=== PATIENT | male | born 1950 | race Caucasian/White ===

== ENCOUNTER 2017-08-13 07:36 | Day surgery (SDC) | payer BC, OTHER ==
[2017-08-13] MEDS ORDERED: D5 LR 1000 ML 1,000 ML IV ONE (07:42)
[2017-08-13] MEDS ORDERED: DIPRIVAN VIAL 20 ML ONE ×2 (09:22→09:42)
[2017-08-13 10:08] VITALS: BP 130/65
== END 2017-08-13 10:10 | disposition home or self-care (01) ==
LOC: SURG1 07:36
PROVIDERS: ATTEND Internal Medicine Gastroenterology
PROC: 0DBN8ZX Excision of Sigmoid Colon, Via Natural or Artificial Opening Endoscopic, Diagnostic (ICD-10-PCS; principal; 2017-08-13 10:00)
PROC: 0DJD8ZZ Inspection of Lower Intestinal Tract, Via Natural or Artificial Opening Endoscopic (ICD-10-PCS; principal; 2017-08-13 10:00)
PROC: 0DBP8ZX Excision of Rectum, Via Natural or Artificial Opening Endoscopic, Diagnostic (ICD-10-PCS; principal; 2017-08-13 10:00)
DX: Z12.11 Encounter for screening for malignant neoplasm of colon (principal); K63.5 Polyp of colon; K57.30 Diverticulosis of large intestine without perforation or abscess without bleeding; K64.0 First degree hemorrhoids; Z86.010 Personal history of colon polyps
CPT/HCPCS: A4217; J3490; J7120

== ENCOUNTER 2018-01-07 16:06 | Inpatient (IN) | payer OTHER ==
[2018-01-07 17:15] LABS: CKMB % 1.5 % (<4); CREATINE KINASE 203 Units/L (39-308); CREATINE KINASE MB 3.1 ng/mL (0-4.0); MAGNESIUM 1.8 mg/dL (1.7-2.9); TROPONIN I < 0.02 ng/mL (0-1.5)
[2018-01-07] MEDS: ASPIRIN PO SCH (17:15)
[2018-01-07] MEDS ORDERED: APRESOLINE TAB 10 MG ONE (17:17)
[2018-01-07] MEDS ORDERED: APRESOLINE INJ 20 MG VIAL IVP PRN ×2 (17:18→20:02)
[2018-01-07] MEDS ORDERED: APRESOLINE INJ 20 MG VIAL ONE (17:23)
[2018-01-07] MEDS: NS 1000 ML 1,000 ML IV SCH (17:25)
[2018-01-07 18:33] VITALS: BMI 39.9
[2018-01-07] MEDS: CRESTOR TAB 10 MG PO SCH ×2 (19:39→20:23)
[2018-01-07] MEDS: PLAVIX PO SCH (19:58)
[2018-01-07] MEDS ORDERED: CATAPRES TAB 0.1 MG PO PRN (19:59)
[2018-01-07] MEDS ORDERED: NORVASC TAB 10 MG PO ONE (20:00)
--- NOTE | 2018-01-07 20:01 | MRI ---
MRI Brain without contrast HISTORY: Left-sided weakness Comparison: CT performed on same day Technique: Multiplanar multi-sequence MRI of the brain was obtained utilizing standard departmental p rotocol. Sagittal and axial T1 weighted images were obtained. Axial T2 and flair weighted images we re performed as well. Axial diffusion weighted and ADC trace mapping was performed. Findings: There is a focus of restricted diffusion within the right cerebral peduncle with faint FLAIR signal h yperintensity noted. There is no other areas of restricted diffusion within the brain. The mild bilateral periventricular deep white matter FLAIR and T2 signal hyperintensity is most consi stent with sequela of chronic microvascular ischemic disease. There is mucosal thickening of the righ t frontal and ethmoids opacification the left posterior ethmoid sinus as well. There is mild mucosal thickening in the bilateral maxillary sinuses. The midline structures appear unremarkable. The evaluation of the brain parenchyma demonstrates no a bnormal signal characteristics to suggest intraparenchymal mass or hemorrhage. No extra-axial fluid collections are observed. The ventricular system appears symmetric and nondilated. The CP angle is normal in its appearance without brainstem mass or evidence for acoustic neuroma. The flow voids on both T1 and T2 weighted imaging appear unremarkable.The extracranial structures are unremarkable. IMPRESSION: 1. Acute infarct within the right cerebral peduncle. 2. Mild bilateral periventricular deep white matter FLAIR and T2 signal hyperintensity consistent wit h chronic microvascular ischemic disease. 3. Mild bilateral maxillary, ethmoid and right frontal sinus mucosal disease. Reported By:
--- NOTE | 2018-01-07 20:21 | RAD ---
Chest PA and lateral Indication: Left upper extremity weakness. Dizziness. Possible stroke. Comparison: 03/16/2012 radiograph Findings: Heart size is prominent. Monitoring leads obscure minimal detail. Clips project over the ri ght neck/supraclavicular region. There is no pneumothorax, effusion or consolidation. Impression: Cardiomegaly without severe edema or other acute abnormality. Reported By:
[2018-01-07] MEDS: HumuLIN R SUBCUT PRN (20:50)
[2018-01-07] MEDS: SNACK - Diabetic Appropriate PO SCH (20:53)
[2018-01-07 21:14] LABS: BASOPHILS # (AUTO) 0.2 X10^3/uL (0.0-0.1); BASOPHILS % (AUTO) 1.9 % (0.2-1.0); EOSINOPHILS # (AUTO) 0.7 x10^3/uL (0.0-0.2); EOSINOPHILS % (AUTO) 7.2 % (0.9-2.9); HEMATOCRIT 43.5 % (42.0-54.0); HEMOGLOBIN 15.4 g/dL (13.5-18.0); LYMPHOCYTES # (AUTO) 3.7 X10^3/uL (1.3-2.9); LYMPHOCYTES % (AUTO) 37.6 % (21.0-51.0); MEAN CORPUSCULAR HEMOGLOBIN 31.8 pg (27.0-34.0); MEAN CORPUSCULAR HGB CONC 35.3 g/dL (33.0-35.0); MEAN CORPUSCULAR VOLUME 90.2 fL (80.0-100.0); MEAN PLATELET VOLUME 9.2 fL (7.4-11.0); MONOCYTES # (AUTO) 0.6 x10^3/uL (0.3-0.8); MONOCYTES % (AUTO) 5.6 % (0.0-13.0); NEUTROPHILS # (AUTO) 4.7 x10^3/uL (2.2-4.8); NEUTROPHILS % (AUTO) 47.7 % (42.0-75.0); PLATELET COUNT 253 X10^3/uL (150.0-450.0); RED BLOOD COUNT 4.83 X10^6/uL (4.7-6.0); RED CELL DISTRIBUTION WIDTH 12.6 % (11.6-16.5); WHITE BLOOD COUNT 9.9 X10^3/uL (3.6-10.0)
[2018-01-07 21:33] LABS: ALANINE AMINOTRANSFERASE 41 Units/L (12-78); ALBUMIN 3.8 g/dL (3.4-5.0); ALKALINE PHOSPHATASE 74 Units/L (46-116); ASPARTATE AMINO TRANSFERASE 28 Units/L (15-37); BLOOD UREA NITROGEN 10 mg/dL (7-18); CALCIUM 8.1 mg/dL (8.5-10.1); CARBON DIOXIDE 22.9 mmol/L (21-32); CHLORIDE 101 mmol/L (98-107); COR NA(FOR HYPERGLY) 139 mmol/L (136-145); CREATININE 0.92 mg/dL (0.70-1.30); SODIUM 136 mmol/L (136-145); TOTAL PROTEIN 7.7 g/dL (6.4-8.2); TSH (3RD GENERATION) 2.417 uIU/mL (0.358-3.74); eGFR BLACK RACES > 60 (>60); eGFR NON BLACK RACES > 60 (>60)
[2018-01-07 23:05] LABS: CKMB % 1.3 % (<4); CREATINE KINASE 196 Units/L (39-308); CREATINE KINASE MB 2.5 ng/mL (0-4.0); TROPONIN I < 0.02 ng/mL (0-1.5)
[2018-01-08 00:18] LABS: BILIRUBIN,URINE NEGATIVE (NEGATIVE); BLOOD/HEMOGLOBIN,URINE NEGATIVE (NEGATIVE); GLUCOSE, URINE 4+ (NEGATIVE); KETONES,URINE NEGATIVE (NEGATIVE); LEUKOCYTE ESTERASE ,URINE NEGATIVE (NEGATIVE); NITRITES,URINE NEGATIVE (NEGATIVE); PROTEIN,URINE 2+ (NEGATIVE); UROBILINOGEN,URINE NORMAL (NORMAL)
[2018-01-08 00:28] LABS: APPEARANCE,URINE CLEAR (CLEAR); BACTERIA,URINE NEGATIVE /HPF (NEGATIVE); COLOR,URINE YELLOW (YELLOW); RBC,URINE 0-2 /HPF (NONE SEEN); SQUAMOUS EPITHELIAL CELL,UR RARE /HPF (NEGATIVE)
[2018-01-08 04:52] LABS: ALANINE AMINOTRANSFERASE 37 Units/L (12-78); ALBUMIN 3.5 g/dL (3.4-5.0); ALKALINE PHOSPHATASE 70 Units/L (46-116); ASPARTATE AMINO TRANSFERASE 19 Units/L (15-37); BLOOD UREA NITROGEN 12 mg/dL (7-18); CALCIUM 7.8 mg/dL (8.5-10.1); CHLORIDE 100 mmol/L (98-107); CHOL/HDL RATIO 6.6 (0.0-5.0); CHOLESTEROL 212 mg/dL (0-200); CKMB % 1.2 % (<4); COR NA(FOR HYPERGLY) 138 mmol/L (136-145); CREATINE KINASE 184 Units/L (39-308); CREATINE KINASE MB 2.2 ng/mL (0-4.0); CREATININE 0.94 mg/dL (0.70-1.30); HDL CHOLESTEROL 32 mg/dL (40-60); SODIUM 133 mmol/L (136-145); TOTAL PROTEIN 7.2 g/dL (6.4-8.2); TRIGLYCERIDES 312 mg/dL (0-150); TROPONIN I < 0.02 ng/mL (0-1.5); eGFR BLACK RACES > 60 (>60); eGFR NON BLACK RACES > 60 (>60)
[2018-01-08 05:25] LABS: BASOPHILS # (AUTO) 0.1 X10^3/uL (0.0-0.1); BASOPHILS % (AUTO) 0.9 % (0.2-1.0); EOSINOPHILS # (AUTO) 0.8 x10^3/uL (0.0-0.2); EOSINOPHILS % (AUTO) 8.5 % (0.9-2.9); HEMATOCRIT 42.7 % (42.0-54.0); LYMPHOCYTES # (AUTO) 3.1 X10^3/uL (1.3-2.9); LYMPHOCYTES % (AUTO) 31.6 % (21.0-51.0); MEAN CORPUSCULAR HEMOGLOBIN 31.7 pg (27.0-34.0); MEAN CORPUSCULAR VOLUME 90.6 fL (80.0-100.0); MEAN PLATELET VOLUME 8.7 fL (7.4-11.0); MONOCYTES # (AUTO) 0.7 x10^3/uL (0.3-0.8); NEUTROPHILS # (AUTO) 5.1 x10^3/uL (2.2-4.8); PLATELET COUNT 272 X10^3/uL (150.0-450.0); RED BLOOD COUNT 4.72 X10^6/uL (4.7-6.0); RED CELL DISTRIBUTION WIDTH 12.7 % (11.6-16.5); WHITE BLOOD COUNT 9.9 X10^3/uL (3.6-10.0)
[2018-01-08] MEDS ORDERED: GLUCOPHAGE ONE (09:38)
[2018-01-08] MEDS: ROCEPHIN VIAL 1 GM 1 GM in NS 100 ML IV + SPIKE MINIBAG* 100 ML IV SCH ×2 (09:44→09:52)
[2018-01-08] MEDS: GLUCOPHAGE PO SCH (09:45)
[2018-01-08] MEDS: NORVASC TAB 10 MG PO SCH (09:45)
[2018-01-08] MEDS: ASPIRIN PO SCH (09:45)
[2018-01-08] MEDS: PLAVIX PO SCH (09:45)
[2018-01-08] MEDS: FENOFIBRATE 120 MG PO SCH (09:51)
[2018-01-08] MEDS: HumuLIN R SUBCUT PRN ×3 (12:14→21:14)
[2018-01-08] MEDS ORDERED: NS 100 ML IV 100 ML IV ONE (12:35)
--- NOTE | 2018-01-08 13:36 | DR.H&P ---
H&P - History & Physical for Day of: H&P Date: 01/07/18 - Chief Complaint Chief Complaint: LEFT SIDE WEAKNESS - Allergies Allergies/Adverse Reactions: Allergies Allergy/AdvReac Type Severity Reaction Status Date / Time No Known Drug Allergies Allergy Verified 01/07/18 09:02 - History of Present Illness History of Present Illness: 67WM ER ADMISSION AFTER PRESENTING WITH CO NEW ONSET LEFT SIDE WEAKNESS. PT STATE HE WOKE UP DURING THE NIGHT WITH WEAKNESS. PT THOUHT HE WAS "JUST SLEEPY". PT AWOKE AT 6:30 AM FOR WORK AND CONTINUES WITH LEFT SIDE WEAKNESS, THOUGHT IT WAS WORSE. PT WENT TO WORK THEN LEFT TO BE SEEN BY PCP AND SENT TO ER. PT HAD CT SCAN IN ER WITHOUT ACUTE CHANGES. PT DC HOME THEN LATER RETURNED WITH WORSENED LEFT SIDE WEAKNESS AND WAS ADMITTED OR STROKE WORK UP. PT HAS PMH OF DM, HYPERLIPIDEMIA, AMIRAH, HTN, MO. DENIES ANY CARDIAC HISTORY,HAD CARDIAC CATH PER DR COLON OVER 5 YEARS AGO IN [place] WITHOUT INTERVENTION. - Past Medical History Past Medical History: Dyslipidemia, Hypertension, Hypothyroidism - Past Surgical History Surgical History: Abdominal Surgery - Family History Family Medical History: Coronary Artery Disease, Hypertension - Social History Does patient currently use any type of tobacco product: No Have you used tobacco products in the last 12 months: No Type of Tobacco Use: None Does any household member use tobacco: No Alcohol Use: None Drug Use: None - Medications Home Medications: Cholecalciferol (Vitamin D3) [Vitamin D3] 1 tab PO PRN PRN 01/07/18 [History Confirmed 01/07/18] Cyanocobalamin (Vitamin B-12) [Cyanocobalamin Injection] 1 mcg IM .MONTHLY 01/07 [History Confirmed 01/07/18] Ibuprofen [Ibu] 1 tab PO TID PRN 01/07/18 [History Confirmed 01/07/18] Levothyroxine Sodium [Levothyroxine Sodium] 1 tab PO DAILY 01/07/18 [History Confirmed 01/07/18] Polyethylene Glycol Pwd Ud [MIRALAX POWDER (17 GM DOSE) *] 1 dose PO PRN PRN [History Confirmed 01/07/18] Simvastatin [Simvastatin] 10 mg PO HS 01/07/18 [History Confirmed 01/07/18] - Review of Systems Constitutional: Weakness Eyes: No Symptoms Reported ENT: No Symptoms Reported Respiratory: No Symptoms Reported Cardiovascular: Edema. denies: Chest Pain, Palpitations Gastrointestinal: No Symptoms Reported Genitourinary: No Symptoms Reported Musculoskeletal: Other (LEFT UPPER AND LOWER EXTREMITY MUSCLE WEAKNESS) Skin: No Symptoms Reported Neurological: Weakness, Numbness, Change in Speech - Physical Exam Vital Signs: Temperature 98.2 F Pulse Rate [Left Radial] 58 Respiratory Rate 20 Blood Pressure [Left Arm] 152/68 Blood Pressure [Right Arm] 146/67 Blood Pressure 187/83 O2 Sat by Pulse Oximetry 96 Oriented: Normal Eyes: Normal Ear: Normal Nose: Normal Throat: Normal Respiratory: RLL Diminished, LLL Diminished Cardiovascular: Normal, Edema : Normal Auscultation: Bowel Sounds: Normal Palpation: Normal Tenderness: Normal Skin: Normal Musculoskeletal: Left, Motor Deficit, Sensory Deficit Psychiatric: Anxiety Affect: Anxious Speech Pattern: Slurred (MILD SLURRING OF SPEECH) - Assessment/Plan (1) Acute left-sided weakness Status: Acute Plan: ADMIT, STAT MRI BRAIN W/O. BP AND LIPID CONTROL ASA, PLAVIX, STATIN. SERIAL CE AND EKG'S. CTA CAROTIDS, CXR ON ADMISSION. BLOOD SUGAR CONTROL, PT OT (2) Hypertension Status: Acute (3) Diabetes Status: Acute (4) AMIRAH (obstructive sleep apnea) Status: Acute (5) Hyperlipemia Status: Acute
--- NOTE | 2018-01-08 13:45 | PCM.PROG ---
Progress Note - Progress Note for Day of Date: 01/08/18 - Subjective Subjective: 67WM ADMITTED ON 01/09 WITH ACUTE ONSET LEFT SIDE WEAKNESS TO LEFT UPPER AND LOWER EXTREMITIES, CONTINUES THIS AM. PT HAD MRI WITH ACUTE CVA FINDINGS. PT CURRENTLY NPO FOR CTA CAROTIDS, CONTINUOUS TELEMETRY, BS CONTROL AND BP CONTROL. PT/OT EVALUATION CONTINUE ASA PLAVIS AND STATIN THERAPY - Past Medical Family Social History Past Med/Fam/Surg Hx: No changes since H&P Allergies: Allergies No Known Drug Allergies Allergy (Verified 01/07/18 09:02) - Review of Systems ROS: No change since H&P - Vital Signs and I&O's Vital Signs: Temperature 98.2 F Pulse Rate [Left Radial] 58 Respiratory Rate 20 Blood Pressure [Left Arm] 152/68 Blood Pressure [Right Arm] 146/67 Blood Pressure 187/83 O2 Sat by Pulse Oximetry 96 Intake and Output: Intake & Output 01/06/18 01/07/18 01/08/18 01/09/18 11:59 11:59 11:59 11:59 Intake Total 630 Output Total 1375 Balance -745 - Physical Exam Oriented: Normal Eyes: Normal Ear: Normal Nose: Normal Throat: Normal Respiratory: Diminished Cardiovascular: Normal, Edema : Normal Auscultation: Bowel Sounds: Normal Tenderness: Normal Skin: Normal Musculoskeletal: Left, Motor Deficit (3/5 STRENGTH ON LEFT UPPER AND LOWER EXTREMITY), Sensory Deficit Psychiatric: Anxiety Affect: Anxious Speech Pattern: Slurred (MILD SLURRING OF SPEECH) - Laboratory and Diagnostics Result Diagrams: 01/08/18 04:20 01/08/18 04:20 Labs: Laboratory WBC 9.9 X10^3/uL (3.6-10.0) 01/08/18 04:20 RBC 4.72 X10^6/uL (4.7-6.0) 01/08/18 04:20 Hgb 15.0 g/dL (13.5-18.0) 01/08/18 04:20 Hct 42.7 % (42.0-54.0) 01/08/18 04:20 MCV 90.6 fL (80.0-100.0) 01/08/18 04:20 MCH 31.7 pg (27.0-34.0) 01/08/18 04:20 MCHC 35.0 g/dL (33.0-35.0) 01/08/18 04:20 RDW 12.7 % (11.6-16.5) 01/08/18 04:20 Plt Count 272 X10^3/uL (150.0-450.0) 01/08/18 04:20 MPV 8.7 fL (7.4-11.0) 01/08/18 04:20 Neut % (Auto) 52.0 % (42.0-75.0) 01/08/18 04:20 Lymph % (Auto) 31.6 % (21.0-51.0) 01/08/18 04:20 [place] % (Auto) 7.0 % (0.0-13.0) 01/08/18 04:20 Eos % (Auto) 8.5 % (0.9-2.9) H 01/08/18 04:20 Baso % (Auto) 0.9 % (0.2-1.0) 01/08/18 04:20 Neut # (Auto) 5.1 x10^3/uL (2.2-4.8) H 01/08/18 04:20 Lymph # (Auto) 3.1 X10^3/uL (1.3-2.9) H 01/08/18 04:20 [place] # (Auto) 0.7 x10^3/uL (0.3-0.8) 01/08/18 04:20 Eos # (Auto) 0.8 x10^3/uL (0.0-0.2) H 01/08/18 04:20 Baso # (Auto) 0.1 X10^3/uL (0.0-0.1) 01/08/18 04:20 Absolute Nucleated RBC 0.4 /100WBC 01/08/18 04:20 Sodium 133 mmol/L (136-145) L 01/08/18 04:20 Corrected Sodium 138 mmol/L (136-145) 01/08/18 04:20 Potassium 3.7 mmol/L (3.5-5.1) 01/08/18 04:20 Chloride 100 mmol/L (98-107) 01/08/18 04:20 Carbon Dioxide 25.0 mmol/L (21-32) 01/08/18 04:20 BUN 12 mg/dL (7-18) 01/08/18 04:20 Creatinine 0.94 mg/dL (0.70-1.30) 01/08/18 04:20 Est GFR (MDRD) Af Amer > 60 (>60) 01/08/18 04:20 Est GFR (MDRD) Non-Af > 60 (>60) 01/08/18 04:20 Glucose 300 mg/dL (65-99) H 01/08/18 04:20 POC Glucose (mg/dL) 253 mg/dL (65-99) H 01/08/18 10:52 Calcium 7.8 mg/dL (8.5-10.1) L 01/08/18 04:20 Corrected Calcium TNP 01/08/18 04:20 Magnesium 1.8 mg/dL (1.7-2.9) 01/07/18 16:40 Total Bilirubin 0.50 mg/dL (0.2-1.0) 01/08/18 04:20 AST 19 Units/L (15-37) 01/08/18 04:20 ALT 37 Units/L (12-78) 01/08/18 04:20 Alkaline Phosphatase 70 Units/L (46-116) 01/08/18 04:20 Creatine Kinase 184 Units/L (39-308) 01/08/18 04:20 CK-MB (CK-2) 2.2 ng/mL (0-4.0) 01/08/18 04:20 CK/CKMB % Calc 1.2 % (<4) 01/08/18 04:20 Troponin I < 0.02 ng/mL (0-1.5) 01/08/18 04:20 Total Protein 7.2 g/dL (6.4-8.2) 01/08/18 04:20 Albumin 3.5 g/dL (3.4-5.0) 01/08/18 04:20 Globulin 3.7 g/dL (2.5-4.5) 01/08/18 04:20 Albumin/Globulin Ratio 0.9 Ratio (1.1-2.1) L 01/08/18 04:20 Triglycerides 312 mg/dL (0-150) H 01/08/18 04:20 Cholesterol 212 mg/dL (0-200) H 01/08/18 04:20 LDL Cholesterol, Calc 118 mg/dL (0-100) H 01/08/18 04:20 HDL Cholesterol 32 mg/dL (40-60) L 01/08/18 04:20 Cholesterol/HDL Ratio 6.6 (0.0-5.0) H 01/08/18 04:20 Free T4 0.90 ng/dL (0.76-1.46) 01/07/18 16:40 TSH 3rd Generation 2.417 uIU/mL (0.358-3.74) 01/07/18 16:40 Specimen Type Clean catch urine 01/07/18 23:10 Urine Color Yellow (YELLOW) 01/07/18 23:10 Urine Appearance Clear (CLEAR) 01/07/18 23:10 Urine pH 8.0 (5.0 - 8.0) 01/07/18 23:10 Ur Specific [place] 1.010 (1.000-1.030) 01/07/18 23:10 Urine Protein 2+ (NEGATIVE) 01/07/18 23:10 Urine Glucose (UA) 4+ (NEGATIVE) 01/07/18 23:10 Urine Ketones Negative (NEGATIVE) 01/07/18 23:10 Urine Occult Blood Negative (NEGATIVE) 01/07/18 23:10 Urine Nitrite Negative (NEGATIVE) 01/07/18 23:10 Urine Bilirubin Negative (NEGATIVE) 01/07/18 23:10 Urine Urobilinogen Normal (NORMAL) 01/07/18 23:10 Ur Leukocyte Esterase Negative (NEGATIVE) 01/07/18 23:10 Urine RBC 0-2 /HPF (NONE SEEN) 01/07/18 23:10 Urine WBC 0-2 /HPF (NONE SEEN) 01/07/18 23:10 Ur Squamous Epith Cells Rare /HPF (NEGATIVE) 01/07/18 23:10 Urine Bacteria Negative /HPF (NEGATIVE) 01/07/18 23:10 Ur Culture Indicated? Yes/culture set up 01/07/18 23:10 - Plan (1) Acute cerebral infarction Status: Acute Plan: BP AND LIPID CONTROL ASA, PLAVIX, STATIN. SERIAL CE AND EKG'S ON ADMISSION. CTA CAROTIDS, CXR ON ADMISSION. BLOOD SUGAR CONTROL, PT OT (2) Acute left-sided weakness Status: Acute Plan: STAT MRI BRAIN W/O ON ADMISSION, REVEALED ACUTE INFARCT RIGHT CEREBRAL AREA. BP AND LIPID CONTROL ASA, PLAVIX, STATIN. SERIAL CE AND EKG'S ON ADMISSION. CTA CAROTIDS, CXR ON ADMISSION. BLOOD SUGAR CONTROL, PT OT (3) Hypertension Status: Acute (4) Diabetes Status: Acute (5) AMIRAH (obstructive sleep apnea) Status: Acute (6) Hyperlipemia Status: Acute
--- NOTE | 2018-01-08 14:37 | VAS ---
HISTORY: Recent CVA Study: Carotid sonogram Comparison: None Technique: Multiple grayscale sonographic images were obtained. Color duplex Doppler evaluation was p erformed. Findings: On the right, there is mild plaque at the bifurcation.. Peak systolic velocity in the internal caroti d is 138 centimeters/second. ICA/CCA ratio 1.69. This suggests a 50% or less stenosis of the internal carotid artery on the right, not hemodynamically significant. On the left there is minimal plaque pr esent. Peak systolic velocity in the internal carotid artery was 85.3 centimeters/second. ICA/CCA rat io was 0.84. No stenosis is present. The left vertebral artery was not identified. IMPRESSION: Findings suggestive of a 50% or less not hemodynamically significant stenosis of the proximal right i nternal carotid artery No stenosis on the left Left vertebral artery not visualized Reported By:
--- NOTE | 2018-01-08 16:07 | CT ---
CT ANGIOGRAM OF THE NECK WITH IV CONTRAST CLINICAL INDICATION: CVA with left-sided weakness TECHNIQUE: Images were obtained through the neck per standard CTA protocol. Multiplanar reformatted, MIP, and volume rendered images were generated from the CT dataset.3D reconstructions were performed. Dose reduction techniques including Automated Exposure Control (AEC) and adjustment of mA and kV wer e utlized. COMPARISON: None. FINDINGS: The petrous, cavernous, and supraclinoid segments of the bilateral internal carotid arteries (ICAs) a re normal. The A1 segments bilaterally are stenotic. The anterior communicating artery is well-visua lized. The posterior communicating arteries are well-visualized. The vertebral arteries and basilar a rtery are normal. The bilateral P1 segments are also somewhat diminutive. There is what appears to be a small developmental venous anomaly along the right cerebral hemisphere on series 6, image 208. No saccular aneurysm, proximal arterial cutoff, intra-arterial clot, or hemodynamically significant i ntracranial arterial stenosis is demonstrated. While the study was optimized for arterial evaluation, the dural venous sinuses demonstrates no evide nce of thrombosis. The imaged aortic arch is normal. The origins of the brachiocephalic, bilateral common carotid, bila teral subclavian, and bilateral vertebral arteries demonstrate no significant stenosis.The bilateral internal and external carotid arteries are patent. Greater than 80% stenosis of the left internal car otid artery just distal to its origin. No hemodynamically significant stenosis of the right internal carotid artery..The cervical vertebral arteries are normal.There is no evidence of arterial dissectio n, occlusion, extravasation of contrast material, arteriovenous fistula, or pseudoaneurysm.The visual ized soft tissues of the neck appear normal.The visualized osseous structures are normal. IMPRESSION: 1. Greater than 80% stenosis of the left internal carotid artery. 2. Stenosis of the bilateral A1 and P1 segments. 3. 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 Reported By:
[2018-01-08] MEDS: NS 1000 ML 1,000 ML IV SCH (16:09)
[2018-01-08] MEDS ORDERED: SYNTHROID 50 mcg TAB PO SCH (16:30)
[2018-01-08] MEDS ORDERED: RESTORIL CAP 15 MG PO PRN (18:30)
[2018-01-08] MEDS: CRESTOR TAB 10 MG PO SCH (21:13)
[2018-01-08] MEDS: SNACK - Diabetic Appropriate PO SCH (22:26)
[2018-01-09] MEDS: HumuLIN R SUBCUT PRN (05:51)
[2018-01-09] MEDS ORDERED: GLUCOPHAGE ONE (08:35)
[2018-01-09] MEDS ORDERED: SYNTHROID 75 mcg TAB PO SCH (09:00)
[2018-01-09] MEDS: GLUCOPHAGE PO SCH (09:20)
[2018-01-09] MEDS: ASPIRIN PO SCH (09:20)
[2018-01-09] MEDS: PLAVIX PO SCH (09:21)
[2018-01-09] MEDS: NORVASC TAB 10 MG PO SCH (09:22)
[2018-01-09] MEDS: ROCEPHIN VIAL 1 GM 1 GM in NS 100 ML IV + SPIKE MINIBAG* 100 ML IV SCH (09:22)
[2018-01-09] MEDS: FENOFIBRATE 120 MG PO SCH (09:22)
[2018-01-09] MEDS: NS 1000 ML 1,000 ML IV SCH (09:25)
[2018-01-09 10:16] VITALS: BP 181/85
[2018-01-09] MEDS ORDERED: NORCO 5/325 MG TAB PO PRN (12:10)
[2018-01-09] MEDS ORDERED: NORCO 5/325 MG TAB ONE (12:29)
== END 2018-01-09 12:49 | disposition short-term general hospital (02) | DRG 66 ==
LOC: MED/SURG 16:06 → OBSVTOIN 16:09
PROVIDERS: ADMIT Internal Medicine; ATTEND Internal Medicine
DX: I63.8 Other cerebral infarction (principal); M62.81 Muscle weakness (generalized); E11.65 Type 2 diabetes mellitus with hyperglycemia; E78.2 Mixed hyperlipidemia; I10 Essential (primary) hypertension; E03.8 Other specified hypothyroidism; I25.10 Atherosclerotic heart disease of native coronary artery without angina pectoris; G47.33 Obstructive sleep apnea (adult) (pediatric); I51.7 Cardiomegaly; R47.81 Slurred speech; R26.89 Other abnormalities of gait and mobility; R53.1 Weakness; R42 Dizziness and giddiness
CPT/HCPCS: 36415; 70450; 70498; 70551; 71046; 80053; 80061; 81001; 82550; 82553; 83735; 84439; 84443; 84484; 85025; 85610; 85730; 87086; 93005; 93010; 93880; 99282; A4222; G0378; J0360; J0696; J1815

== ENCOUNTER → 2018-01-07 | Emergency (ER) | payer OTHER ==
[2018-01-07 09:07] VITALS: BP 187/83; BMI 39.9
--- NOTE | 2018-01-07 09:17 | DR.GENAD ---
HPI - PCP Primary Care Physician: michael clancy - Complaint/Symptoms Chief Complaint Doctors Comments: Patient reports that this early AM midnight got up to go the bathroom, left upper extremity felt weak, with some degree of weakness in left lower extremy. This AM when getting up again felt weakness and left upper and lower extremity. [place] a little dizzy. Chief Complaint:: pt stated he woke up at mid night having weakness in his left arm and left leg. pt stated when he woke up at 630 this morning it had the same felling. - Source History Provided: Patient - Mode of Arrival Mode of Arrival: Ambulatory - Timing Onset of Chief Complaint: 01/06/18 PMH - PMH Past Medical History: Yes Past Medical History: Dyslipidemia, Hypertension, Hypothyroidism Past Surgical History: Yes Surgical History: Abdominal Surgery - Family History History of Family Medical Conditions: No - Social History Does patient currently use any type of tobacco product: No Have you used tobacco products in the last 12 months: No Type of Tobacco Use: None Does any household member use tobacco: No Alcohol Use: None Do you use any recreational Drugs:: No Lives With: Family Lives Where: Home - infectious screening In the last 2 months have you had wt loss of >10#?: NO Have you had fever, night sweats or hemotysis?: No Have you traveled outside the country in the last 6 months?: No Isolation: Standard ROS - Review of Systems Eyes: No Symptoms Reported ENTM: No Symptoms Reported Respiratoy: No Symptoms Reported Cardiovascular: No Symptoms Reported Gastrointestinal/Abdominal: No Symptoms Reported Genitourinary: No Symptoms Reported Neurological: No Symptoms Reported Musculoskeletal: No Symptoms Reported Integumentary: No Symptoms Reported Hematologic/Lymphatic: No Symptoms Reported Endocrine: No Symptoms Reported Psychiatric: No Symptoms Reported All Other Systems: Reviewed and Negative PE - Vital Signs Vitals: Temperature 98.7 F Pulse Rate 66 Respiratory Rate 16 Blood Pressure 187/83 O2 Sat by Pulse Oximetry 98 - General Limitations: No Limitations General Appearance: Alert, In No Apparent Distress - Head Head Exam: Normal Inspection, Atraumatic - Eyes Eye exam: Normal Appearance, PERRL, EOMI - ENT ENT Exam: Normal Exam External Ear Exam: Normal External Inspection TM/Canal Exam: Bilateral Normal Nose Exam: Normal Nose Exam Mouth Exam: Normal Inspection Throat Exam: Normal Inspection - Neck Neck Exam: Normal Inspection, Full ROM - Chest Chest Inspection: Normal Inspection - Respiratory Respiratory Exam: Normal Lung Sounds Bilat Respiratory Exam: Bilateral Clear to Auscultation - Cardiovascular Cardiovascular Exam: Regular Rate, Normal Rhythm - Abdominal Exam Abdominal Exam: Normal Inspection, Normal Bowel Sounds Abdominal Tenderness: negative: RUQ, RLQ, LUQ, LLQ, Epigastrium, Suprapubic, Diffuse, Mild, Moderate, Severe, Other - Extremities Extremities Exam: Normal Inspection, Full ROM - Back Back Exam: Normal Inspection, Full ROM - Neurologic Neurological Exam: Alert, Oriented X3, CN II-XII Intact - Psychiatric Psychiatric Exam: Normal Affect - Skin Skin Exam: Warm, Dry, Intact Course - Reevaluation 1st: Unchanged ROR - XRAY XRAY Interpreted by: Radiologist (Brain CT: No evidence of acute intracranial abnormality. Nonspecific white matter change and volume loss . If there remains strong clinical concern for acute intracranial abnormality, then an MNRI examinaltion should be considered for further evaluation.) - Diagnosis Discharge Problem: History of lefte sided weakness, Negative CVA - Discharge Plan Condition: Stable - Follow ups/Referrals Follow ups/Referrals: DERECK CLANCY [Primary Care Provider] - 3 days - Instructions
--- NOTE | 2018-01-07 11:05 | CT ---
STUDY: CT HEAD WITHOUT CONTRAST HISTORY: Left-sided weakness this morning. COMPARISON: None. TECHNIQUE: Multiple axial images of the head were obtained from the skull base to the vertex without administration of IV contrast. Automated exposure control (AEC) was utilized to adjust the MA and/or kV. Findings: The sulci, cisterns and ventricles are prominent consistent with mild diffuse volume loss. There are scattered foci of low attenuation in the periventricular and subcortical white matter of joelle th hemispheres. This is a nonspecific finding which likely represents microangiopathic change in a pa tient of this age. There is no evidence of acute territorial infarction, hemorrhage, mass, mass effect or midline shift. There are no abnormal extra-axial fluid collections. There is no evidence of acute osseous abnormal ity or significant soft tissue swelling. IMPRESSION: 1. No evidence of acute intracranial abnormality. 2. Nonspecific white matter change and volume loss as described. 3. If there remains strong clinical concern for acute intracranial abnormality, then an MRI examinati on should be considered for further evaluation. Reported By:
== END ==
LOC: ER 09:15
DX: R53.1 Weakness (principal); R42 Dizziness and giddiness
CPT/HCPCS: 70450; 99282

== ENCOUNTER 2023-12-21 13:46 | Observation (INO) ==
[2023-12-21 14:06] VITALS: BMI 34.5
[2023-12-21 14:15] LABS: BASOPHILS # (AUTO) 0.1 X10^3/uL (0.0-0.1); BASOPHILS % (AUTO) 0.7 % (0.2-1.0); EOSINOPHILS # (AUTO) 0.4 x10^3/uL (0.0-0.2); HEMATOCRIT 40.4 % (42.0-54.0); HEMOGLOBIN 13.4 g/dL (13.5-18.0); LYMPHOCYTES # (AUTO) 1.7 X10^3/uL (1.3-2.9); LYMPHOCYTES % (AUTO) 19.8 % (21.0-51.0); MEAN CORPUSCULAR HEMOGLOBIN 30.7 pg (27.0-34.0); MEAN CORPUSCULAR VOLUME 92.8 fL (80.0-100.0); MEAN PLATELET VOLUME 7.9 fL (7.4-11.0); MONOCYTES % (AUTO) 11.2 % (0.0-13.0); NEUTROPHILS # (AUTO) 5.5 x10^3/uL (2.2-4.8); NEUTROPHILS % (AUTO) 63.3 % (42.0-75.0); PLATELET COUNT 212 X10^3/uL (150.0-450.0); RED BLOOD COUNT 4.35 X10^6/uL (4.7-6.0); RED CELL DISTRIBUTION WIDTH 13.5 % (11.6-16.5); WHITE BLOOD COUNT 8.7 X10^3/uL (3.6-10.0)
--- NOTE | 2023-12-21 14:17 | RAD ---
EXAM:CHEST, 1 VIEWHISTORY:Syncopy;COMPARISON:Prior study or studies were utilized for comparison during interpretation with the most relevant dated 02/13/2022TECHNIQUE:CHEST, 1 VIEWFINDINGS:Chest:Lines and tubes: Cardiac leads overlie the chest.Mediastinum: Cardiomegaly.Pulmonary vessels: No pulmonary vascular congestion.Lung mcdonald: No suspicious airspace opacity.Pleura: No effusion. No pneumothorax.Bones and soft tissues: No acute osseous or soft tissue abnormality.IMPRESSION:1. No acute cardiopulmonary abnormalityTHIS IS AN ELECTRONICALLY VERIFIED FINAL REPORT12/21/2023 2:13 PM - Electronically signed by Rashaad Smith MD
--- NOTE | 2023-12-21 14:25 | DR.GENAD ---
HPI Time Seen Time Seen by Provider: 12/21/23 14:24 PCP Primary Care Physician: antoine fernando Complaint/Symptoms Chief Complaint:: patient states around 1230 he was sitting in his chair he got very light headed/diaphoretic/pale states he didnt LOC. patient states he has also been dealing with a sore throat x2 days and may have ran a fever lastnight as well. COVID-19 Coronavirus risk:travel/contact w/high risk person: No Has patient experienced Coronavirus symptoms: No Source History Provided: Patient Mode of Arrival Mode of Arrival: Wheelchair Timing Onset of Chief Complaint: 12/19/23 PMH PMH Past Medical History: Yes Past Medical History: Arthritis, CVA, Diabetes, Dyslipidemia, Hypertension and Hypothyroidism Past Medical History Comment: blockage in kidney Past Surgical History: Yes Surgical History: Abdominal Surgery Past Surgical History Comment: carotid artery,back,umbilical hernia, дмитрий leg stents, lumpectomy,cataracts. Family History History of Family Medical Conditions: Yes Family Medical History: Coronary Artery Disease and Hypertension Social History Does patient currently use any type of tobacco product: No Have you used tobacco products in the last 12 months: No Type of Tobacco Use: None Does any household member use tobacco: No Alcohol Use: None Do you use any recreational Drugs:: No Lives With: Family Lives Where: Home Travel Risk Coronavirus risk:travel/contact w/high risk person: No Has patient experienced Coronavirus symptoms: No Infectious screening In the last 2 months have you had wt loss of >10#?: NO Have you had fever, night sweats or hemotysis?: No Have you traveled outside the country in the last 6 months?: No Isolation: Standard PE Vital Signs Vitals: Vital Signs Temperature 97.8 F Pulse Rate 62 Pulse Rate 55 Pulse Rate 61 Pulse Rate 60 Pulse Rate 67 Pulse Rate 55 Pulse Rate 54 Pulse Rate 54 Pulse Rate 60 Pulse Rate 55 Pulse Rate 59 Pulse Rate 57 Pulse Rate 59 Pulse Rate 59 Respiratory Rate 22 Respiratory Rate 14 Respiratory Rate 24 Respiratory Rate 31 Respiratory Rate 30 Respiratory Rate 20 Respiratory Rate 25 Respiratory Rate 23 Respiratory Rate 29 Respiratory Rate 22 Respiratory Rate 21 Respiratory Rate 23 Respiratory Rate 28 Respiratory Rate 15 Blood Pressure 178/75 Blood Pressure 181/77 Blood Pressure 166/79 Blood Pressure 188/78 Blood Pressure 160/95 Blood Pressure 190/77 O2 Sat by Pulse Oximetry 95 O2 Sat by Pulse Oximetry 95 O2 Sat by Pulse Oximetry 96 O2 Sat by Pulse Oximetry 95 O2 Sat by Pulse Oximetry 95 O2 Sat by Pulse Oximetry 96 O2 Sat by Pulse Oximetry 96 O2 Sat by Pulse Oximetry 98 O2 Sat by Pulse Oximetry 95 O2 Sat by Pulse Oximetry 95 O2 Sat by Pulse Oximetry 96 O2 Sat by Pulse Oximetry 95 O2 Sat by Pulse Oximetry 95 O2 Sat by Pulse Oximetry 96 ROR Labs Reviewed 12/21/23 13:54 12/21/23 13:54 Laboratory: WBC 8.7 X10^3/uL (3.6-10.0) 12/21/23 13:54 RBC 4.35 X10^6/uL (4.7-6.0) L 12/21/23 13:54 Hgb 13.4 g/dL (13.5-18.0) L 12/21/23 13:54 Hct 40.4 % (42.0-54.0) L 12/21/23 13:54 MCV 92.8 fL (80.0-100.0) 12/21/23 13:54 MCH 30.7 pg (27.0-34.0) 12/21/23 13:54 MCHC 33.0 g/dL (33.0-35.0) 12/21/23 13:54 RDW 13.5 % (11.6-16.5) 12/21/23 13:54 Plt Count 212 X10^3/uL (150.0-450.0) 12/21/23 13:54 MPV 7.9 fL (7.4-11.0) 12/21/23 13:54 Neut % (Auto) 63.3 % (42.0-75.0) 12/21/23 13:54 Lymph % (Auto) 19.8 % (21.0-51.0) L 12/21/23 13:54 [place] % (Auto) 11.2 % (0.0-13.0) 12/21/23 13:54 Eos % (Auto) 5.0 % (0.9-2.9) H 12/21/23 13:54 Baso % (Auto) 0.7 % (0.2-1.0) 12/21/23 13:54 Neut # (Auto) 5.5 x10^3/uL (2.2-4.8) H 12/21/23 13:54 Lymph # (Auto) 1.7 X10^3/uL (1.3-2.9) 12/21/23 13:54 [place] # (Auto) 1.0 x10^3/uL (0.3-0.8) H 12/21/23 13:54 Eos # (Auto) 0.4 x10^3/uL (0.0-0.2) H 12/21/23 13:54 Baso # (Auto) 0.1 X10^3/uL (0.0-0.1) 12/21/23 13:54 Absolute Nucleated RBC 0.1 /100WBC 12/21/23 13:54 PT 15.3 SECONDS (11.8-14.3) 12/21/23 13:54 INR Target Range - 12/21/23 13:54 INR 1.23 (0.8-1.3) 12/21/23 13:54 Sodium 140 mmol/L (136-145) 12/21/23 13:54 Corrected Sodium 141 mmol/L (136-145) 12/21/23 13:54 Potassium 4.3 mmol/L (3.5-5.1) 12/21/23 13:54 Chloride 104 mmol/L (98-107) 12/21/23 13:54 Carbon Dioxide 27.9 mmol/L (21-32) 12/21/23 13:54 BUN 15 mg/dL (7-18) 12/21/23 13:54 Creatinine 1.41 mg/dL (0.70-1.30) H 12/21/23 13:54 Est GFR (MDRD) Af Amer > 60 (>60) 12/21/23 13:54 Est GFR (MDRD) Non-Af 53 (>60) L 12/21/23 13:54 Glucose 133 mg/dL (65-99) H 12/21/23 13:54 Calcium 8.9 mg/dL (8.5-10.1) 12/21/23 13:54 Corrected Calcium 9.7 mg/dL (8.5-10.1) 12/21/23 13:54 Total Bilirubin 0.60 mg/dL (0.2-1.0) 12/21/23 13:54 AST 8 Units/L (15-37) L 12/21/23 13:54 ALT 12 Units/L (12-78) 12/21/23 13:54 Alkaline Phosphatase 63 Units/L (46-116) 12/21/23 13:54 Creatine Kinase 109 Units/L (39-308) 12/21/23 13:54 Troponin I High Sens 11.1 ng/L (4.0-60.0) 12/21/23 16:07 Total Protein 7.2 g/dL (6.4-8.2) 12/21/23 13:54 Albumin 3.0 g/dL (3.4-5.0) L 12/21/23 13:54 Globulin 4.2 g/dL (2.5-4.5) 12/21/23 13:54 Albumin/Globulin Ratio 0.7 Ratio (1.1-2.1) L 12/21/23 13:54 S. pyogenes (TEM-PCR) Not detected (NOT DETECT) 12/21/23 14:26 Opioid Opioid Risk Tool Age (Deng box if 16-45): No History of Preadolescent Sexual Abuse: No Total: 0 Total Score Risk Category: Low Risk Copyright: Willams predicting aberrant behaviors Discharge Plan Diagnosis Discharge Problem: Near syncope, Dizziness, Bradycardia Discharge Plan Patient Disposition: 01 HOME, SELF-CARE Condition: Stable Orders to Discharge Patient Discharge Orders: Transfer (Routine); Ordered 12/21/23 Ordered By: MARIA INES SILVERMAN
[2023-12-21 14:27] LABS: INR 1.23 (0.8-1.3)
[2023-12-21 14:30] LABS: ALANINE AMINOTRANSFERASE 12 Units/L (12-78); ALKALINE PHOSPHATASE 63 Units/L (46-116); ASPARTATE AMINO TRANSFERASE 8 Units/L (15-37); BLOOD UREA NITROGEN 15 mg/dL (7-18); CALCIUM 8.9 mg/dL (8.5-10.1); CARBON DIOXIDE 27.9 mmol/L (21-32); CHLORIDE 104 mmol/L (98-107); COR CA(FOR HYPOALB) 9.7 mg/dL (8.5-10.1); COR NA(FOR HYPERGLY) 141 mmol/L (136-145); CREATINE KINASE 109 Units/L (39-308); CREATININE 1.41 mg/dL (0.70-1.30); GLUCOSE 133 mg/dL (65-99); POTASSIUM 4.3 mmol/L (3.5-5.1); SODIUM 140 mmol/L (136-145); TOTAL PROTEIN 7.2 g/dL (6.4-8.2); eGFR NON BLACK RACES 53 (>60)
--- NOTE | 2023-12-21 14:37 | EKG ---
Test Reason : Syncopy Blood Pressure : */* mmHG Vent. Rate : 59 BPM Atrial Rate : 59 BPM P-R Int : 294 ms QRS Dur : 134 ms QT Int : 418 ms P-R-T Axes : 50 -66 -12 degrees QTc Int : 413 ms Sinus bradycardia with 1st degree AV block Left axis deviation Left ventricular hypertrophy with QRS widening ( R in aVL , Hira product ) Inferior infarct , age undetermined Anterolateral infarct , age undetermined Abnormal ECG No previous ECGs available Confirmed by Lan Paul MD ([id number]) on 12/22/2023 7:45:09 AM Referred By: Confirmed By: Lan Paul MD
--- NOTE | 2023-12-21 15:33 | CT ---
EXAM:BRAIN W/O CONHISTORY:AMS, SYNCOPE;COMPARISON:None.TECHNIQUE:Multip le axial images of the head were performed from the skullbase to the vertex using standard departmental protocol. Sagittal and coronal reformatted images were performed. Dose reduction techniques including Automated Exposure Control (AEC) and adjustment of mA and kV were utilized.FINDINGS:No hemorrhage or midline shift. Menjivar-white matter differentiation maintained. Mild atrophy and chronic small vessel ischemic change.Ventricles and cisterns are appropriate.Visualized sinuses are clear. Calvarium unremarkable. No evidence for mass or mass effect by noncontrast CT.IMPRESSION:Mild atrophy and chronic small-vessel ischemic change with no acute intracranial findings. MRI is more sensitive for acute infarct.THIS IS AN ELECTRONICALLY VERIFIED FINAL REPORT12/21/2023 3:30 PM - Electronically signed by Terell Murillo MD
--- NOTE | 2023-12-21 16:11 | EKG ---
Test Reason : repeating 2 hours after initial Blood Pressure : */* mmHG Vent. Rate : 56 BPM Atrial Rate : 56 BPM P-R Int : 280 ms QRS Dur : 152 ms QT Int : 450 ms P-R-T Axes : 44 -64 -9 degrees QTc Int : 434 ms Sinus bradycardia with 1st degree AV block Left axis deviation Right bundle branch block consider ant mi Abnormal ECG When compared with ECG of 21-DEC-2023 14:33, (Unconfirmed) No significant change was found Confirmed by Lan Paul MD ([id number]) on 12/22/2023 7:44:58 AM Referred By: Confirmed By: Lan Paul MD
[2023-12-21] MEDS ORDERED: NovoLIN R (or HumuLIN R) SUBCUT PRN (20:32)
[2023-12-22 05:57] LABS: BASOPHILS # (AUTO) 0.1 X10^3/uL (0.0-0.1); BASOPHILS % (AUTO) 0.7 % (0.2-1.0); EOSINOPHILS # (AUTO) 0.4 x10^3/uL (0.0-0.2); EOSINOPHILS % (AUTO) 5.6 % (0.9-2.9); HEMATOCRIT 37.7 % (42.0-54.0); HEMOGLOBIN 12.9 g/dL (13.5-18.0); LYMPHOCYTES % (AUTO) 25.5 % (21.0-51.0); MEAN CORPUSCULAR HEMOGLOBIN 31.5 pg (27.0-34.0); MEAN CORPUSCULAR HGB CONC 34.2 g/dL (33.0-35.0); MEAN CORPUSCULAR VOLUME 91.9 fL (80.0-100.0); NEUTROPHILS # (AUTO) 4.5 x10^3/uL (2.2-4.8); NEUTROPHILS % (AUTO) 56.2 % (42.0-75.0); PLATELET COUNT 203 X10^3/uL (150.0-450.0); RED CELL DISTRIBUTION WIDTH 13.3 % (11.6-16.5); WHITE BLOOD COUNT 7.9 X10^3/uL (3.6-10.0)
[2023-12-22 06:02] LABS: INR 1.25 (0.8-1.3)
[2023-12-22 06:09] LABS: ALANINE AMINOTRANSFERASE 12 Units/L (12-78); ALBUMIN 2.7 g/dL (3.4-5.0); ALKALINE PHOSPHATASE 64 Units/L (46-116); ASPARTATE AMINO TRANSFERASE 11 Units/L (15-37); BLOOD UREA NITROGEN 19 mg/dL (7-18); CALCIUM 8.9 mg/dL (8.5-10.1); CARBON DIOXIDE 26.9 mmol/L (21-32); CHLORIDE 107 mmol/L (98-107); COR CA(FOR HYPOALB) 9.9 mg/dL (8.5-10.1); COR NA(FOR HYPERGLY) 142 mmol/L (136-145); CREATININE 1.39 mg/dL (0.70-1.30); GLUCOSE 125 mg/dL (65-99); MAGNESIUM 2.1 mg/dL (2.0-2.9); SODIUM 141 mmol/L (136-145); TOTAL PROTEIN 6.6 g/dL (6.4-8.2); eGFR NON BLACK RACES 53 (>60)
--- NOTE | 2023-12-22 11:21 | DR.H&P ---
H&P History & Physical for Day of: H&P Date: 12/22/23 Chief Complaint Chief Complaint: near-syncope, diaphoretic Allergies Allergies Allergy/AdvReac Type Severity Reaction Status Date / Time No Known Drug Allergies Allergy Verified 04/10/23 09:11 History of Present Illness History of Present Illness: Mr Lara is a 73y/o male with a PMH of HTN, HLD, DM and CVA s/p left endarterectomy presented with feeling lightheaded, clammy and sweaty as he was sitting and watching TV. He states the episode lasted a few mins. He denies chest pain or SOB. He reports slight dizziness with ambulation. In the ER, Ct-head was negative, CXR did not show any acute process. Cardiac e nzymes and EKG were negative. He was admitted for further work up. He has not had any episodes overnight. Labs/imaging reviewed -Trop x 2 (-) BUN/Cr:19/1.39 Hgb 12.9 -CT-head reviewed -CXR: no acute process Plan: Continue to monitor on telemetry, orthostatic vitals. Will order carotid U S and echocardiogram. Resume home medications. Replace electrolytes as per protocol. Monitor AM labs/imaging. Past Medical History Past Medical History: Arthritis, CVA, Diabetes, Dyslipidemia, Hypertension and Hypothyroidism Past Surgical History Surgical History: Abdominal Surgery and Carotid Endarterectomy Family History Family Medical History: Diabetes Mellitus, Coronary Artery Disease and Hypertension Social History Does patient currently use any type of tobacco product: No Have you used tobacco products in the last 12 months: No Type of Tobacco Use: None Does any household member use tobacco: No Alcohol Use: None Drug Use: None Medications Home Medications: Home Medications Medication Instructions Recorded Confirmed Type montelukast 10 mg tablet 10 mg PO QDAY 12/21/23 12/21/23 History rivaroxaban 2.5 mg tablet (Xarelto) PO 12/21/23 History Labs 12/22/23 05:02 12/22/23 05:02 Labs: Laboratory WBC 7.9 X10^3/uL (3.6-10.0) 12/22/23 05:02 RBC 4.10 X10^6/uL (4.7-6.0) L 12/22/23 05:02 Hgb 12.9 g/dL (13.5-18.0) L 12/22/23 05:02 Hct 37.7 % (42.0-54.0) L 12/22/23 05:02 MCV 91.9 fL (80.0-100.0) 12/22/23 05:02 MCH 31.5 pg (27.0-34.0) 12/22/23 05:02 MCHC 34.2 g/dL (33.0-35.0) 12/22/23 05:02 RDW 13.3 % (11.6-16.5) 12/22/23 05:02 Plt Count 203 X10^3/uL (150.0-450.0) 12/22/23 05:02 MPV 8.0 fL (7.4-11.0) 12/22/23 05:02 Neut % (Auto) 56.2 % (42.0-75.0) 12/22/23 05:02 Lymph % (Auto) 25.5 % (21.0-51.0) 12/22/23 05:02 [place] % (Auto) 12.0 % (0.0-13.0) 12/22/23 05:02 Eos % (Auto) 5.6 % (0.9-2.9) H 12/22/23 05:02 Baso % (Auto) 0.7 % (0.2-1.0) 12/22/23 05:02 Neut # (Auto) 4.5 x10^3/uL (2.2-4.8) 12/22/23 05:02 Lymph # (Auto) 2.0 X10^3/uL (1.3-2.9) 12/22/23 05:02 [place] # (Auto) 1.0 x10^3/uL (0.3-0.8) H 12/22/23 05:02 Eos # (Auto) 0.4 x10^3/uL (0.0-0.2) H 12/22/23 05:02 Baso # (Auto) 0.1 X10^3/uL (0.0-0.1) 12/22/23 05:02 Absolute Nucleated RBC 0.0 /100WBC 12/22/23 05:02 PT 15.4 SECONDS (11.8-14.3) 12/22/23 05:02 INR Target Range - 12/22/23 05:02 INR 1.25 (0.8-1.3) 12/22/23 05:02 APTT 35.1 SECONDS (22.9-36.5) 12/22/23 05:02 PTT Comment - 12/22/23 05:02 Sodium 141 mmol/L (136-145) 12/22/23 05:02 Corrected Sodium 142 mmol/L (136-145) 12/22/23 05:02 Potassium 4.0 mmol/L (3.5-5.1) 12/22/23 05:02 Chloride 107 mmol/L (98-107) 12/22/23 05:02 Carbon Dioxide 26.9 mmol/L (21-32) 12/22/23 05:02 BUN 19 mg/dL (7-18) H 12/22/23 05:02 Creatinine 1.39 mg/dL (0.70-1.30) H 12/22/23 05:02 Est GFR (MDRD) Af Amer > 60 (>60) 12/22/23 05:02 Est GFR (MDRD) Non-Af 53 (>60) L 12/22/23 05:02 Glucose 125 mg/dL (65-99) H 12/22/23 05:02 POC Glucose (mg/dL) 133 mg/dL (65-99) H 12/22/23 05:36 Calcium 8.9 mg/dL (8.5-10.1) 12/22/23 05:02 Corrected Calcium 9.9 mg/dL (8.5-10.1) 12/22/23 05:02 Magnesium 2.1 mg/dL (2.0-2.9) 12/22/23 05:02 Total Bilirubin 0.50 mg/dL (0.2-1.0) 12/22/23 05:02 AST 11 Units/L (15-37) L 12/22/23 05:02 ALT 12 Units/L (12-78) 12/22/23 05:02 Alkaline Phosphatase 64 Units/L (46-116) 12/22/23 05:02 Creatine Kinase 109 Units/L (39-308) 12/21/23 13:54 Troponin I High Sens 11.1 ng/L (4.0-60.0) 12/21/23 16:07 Total Protein 6.6 g/dL (6.4-8.2) 12/22/23 05:02 Albumin 2.7 g/dL (3.4-5.0) L 12/22/23 05:02 Globulin 3.9 g/dL (2.5-4.5) 12/22/23 05:02 Albumin/Globulin Ratio 0.7 Ratio (1.1-2.1) L 12/22/23 05:02 S. pyogenes (TEM-PCR) Not detected (NOT DETECT) 12/21/23 14:26 Review of Systems Constitutional: No Symptoms Reported Eyes: No Symptoms Reported Respiratory: No Symptoms Reported Cardiovascular: No Symptoms Reported Gastrointestinal: No Symptoms Reported Genitourinary: No Symptoms Reported Musculoskeletal: No Symptoms Reported Skin: No Symptoms Reported Neurological: Other (dizziness) Physical Exam Vital Signs: Vital Signs Temperature 98.1 F Temperature 98.3 F Pulse Rate [Apical] 62 Pulse Rate [Apical] 63 Respiratory Rate 18 Respiratory Rate 20 Blood Pressure [Left Arm] 166/74 Blood Pressure [Left Arm] 171/79 O2 Sat by Pulse Oximetry 94 O2 Sat by Pulse Oximetry 94 Oriented: Normal Eyes: Normal Nose: Normal Respiratory: Clear Throughout Cardiovascular: Normal Auscultation: Bowel Sounds: Normal Palpation: Normal Tenderness: Normal Skin: Normal Musculoskeletal: Normal Psychiatric: Normal Mood Description: Calm Affect: Normal Speech Pattern: Clear and Appropriate Assessment/Plan (1) Near syncope: Status: Acute (2) Dizziness: Status: Acute (3) Lower extremity neuropathy: Qualifiers: Laterality: bilateral Qualified Code(s): G57.93 - Unspecified mononeuropathy of bilateral lower limbs Status: Acute (4) HTN (hypertension): Qualifiers: Hypertension type: primary hypertension Qualified Code(s): I10 - Essent ial (primary) hypertension Status: None (5) Atherosclerotic cardiovascular disease: Status: Chronic (6) Stroke with left hemiparesis: Status: Chronic (7) Diabetes: Qualifiers: Diabetes mellitus complication detail: with other circulatory complications Diabetes mellitus complication status: with circulatory complication Diabetes mellitus retirement insulin use: with retirement use Diabetes mellitus type: type 2 Qualified Code(s): E11.59 - Type 2 diabetes mellitus with other circulatory complications; Z79.4 - [facility] (current) use of insulin Status: Acute Review H&P Reviewed: Yes Patient was examined?: Yes
[2023-12-22] MEDS: ASPIRIN EC 81 MG PO SCH (13:02)
[2023-12-22] MEDS: NORVASC TAB 10 MG PO SCH (13:02)
[2023-12-22] MEDS: COREG TAB 25 MG PO SCH (13:02)
--- NOTE | 2023-12-22 15:46 | VAS ---
EXAM:CAROTID USHISTORY:near syncope; NEAR SYNCOPE,DIZZINESS, BRADYCARDIACOMPARISON:None available.TECHNIQUE:Multiple latham scale, duplex and color flow Doppler images of the right and left carotid arterial system were obtained. The vertebral arterial system was evaluated as well.FINDINGS:Nonocclusive color flow Doppler is seen throughout the right and left carotid arterial system.Abnormally elevated carotid velocities are seen within the right ICA, left ICA, and left CCA arteries in the 50-69% stenosis range.There is moderate atherosclerotic plaque formation of the bilateral carotid bulbs and proximal ICAs with associated intimal thickening but without sonographic evidence for in additional high-grade stenosis (>70%) or occlusion of the carotid arteries. The right and left vertebral artery demonstrate antegrade flow.There is patent flow and normal duplex waveforms within the right and left external carotid arteries.Peak right ICA velocity: 129 centimeter/seconds.Peak right CCA velocity: 124 centimeter/seconds.Right ICA to CCA ratio: 1.4.Peak left ICA velocity: 168 centimeter/seconds.Peak left CCA velocity: 135 centimeter/seconds.Left ICA to CCA ratio: 1.0.IMPRESSION:Abnormally elevated carotid velocities are seen within the right ICA, left ICA, and left CCA arteries in the 50-69% stenosis range.There is moderate atherosclerotic plaque formation of the bilateral carotid bulbs and proximal ICAs with associated intimal thickening but without sonographic evidence for in additional high-grade stenosis (>70%) or occlusion of the carotid arteries. The right and left vertebral artery demonstrate antegrade flow.THIS IS AN ELECTRONICALLY VERIFIED FINAL REPORT12/22/2023 3:43 PM - Electronically signed by Tom Guerrero
[2023-12-22] MEDS: ZyrTEC TAB 10 MG PO SCH (18:28)
[2023-12-22] MEDS: NEURONTIN CAP 100 MG PO SCH (21:18)
[2023-12-22] MEDS: XARELTO PO SCH (21:18)
[2023-12-22] MEDS: CRESTOR TAB 10 MG PO SCH (21:18)
[2023-12-22] MEDS: METFORMIN 750 MG PO SCH (21:20)
[2023-12-22] MEDS: SNACK - Diabetic Appropriate PO SCH (21:20)
[2023-12-23 05:29] LABS: BASOPHILS % (AUTO) 0.5 % (0.2-1.0); EOSINOPHILS # (AUTO) 0.6 x10^3/uL (0.0-0.2); EOSINOPHILS % (AUTO) 6.4 % (0.9-2.9); HEMATOCRIT 36.9 % (42.0-54.0); HEMOGLOBIN 12.4 g/dL (13.5-18.0); LYMPHOCYTES # (AUTO) 2.2 X10^3/uL (1.3-2.9); LYMPHOCYTES % (AUTO) 24.7 % (21.0-51.0); MEAN CORPUSCULAR HEMOGLOBIN 30.8 pg (27.0-34.0); MEAN CORPUSCULAR HGB CONC 33.5 g/dL (33.0-35.0); MEAN CORPUSCULAR VOLUME 91.9 fL (80.0-100.0); MEAN PLATELET VOLUME 7.8 fL (7.4-11.0); MONOCYTES # (AUTO) 1.2 x10^3/uL (0.3-0.8); MONOCYTES % (AUTO) 13.1 % (0.0-13.0); NEUTROPHILS # (AUTO) 4.9 x10^3/uL (2.2-4.8); NEUTROPHILS % (AUTO) 55.3 % (42.0-75.0); PLATELET COUNT 212 X10^3/uL (150.0-450.0); RED BLOOD COUNT 4.02 X10^6/uL (4.7-6.0); RED CELL DISTRIBUTION WIDTH 13.6 % (11.6-16.5); WHITE BLOOD COUNT 8.8 X10^3/uL (3.6-10.0)
[2023-12-23 05:34] LABS: BLOOD UREA NITROGEN 20 mg/dL (7-18); CALCIUM 8.4 mg/dL (8.5-10.1); CARBON DIOXIDE 25.5 mmol/L (21-32); CHLORIDE 105 mmol/L (98-107); CREATININE 1.45 mg/dL (0.70-1.30); GLUCOSE 104 mg/dL (65-99); POTASSIUM 3.8 mmol/L (3.5-5.1); SODIUM 140 mmol/L (136-145); eGFR NON BLACK RACES 51 (>60)
[2023-12-23 08:25] VITALS: BP 149/67; PULSE 65; RESP 18; TEMP 97.6; O2SAT 94
[2023-12-23] MEDS: COZAAR PO SCH (09:17)
[2023-12-23] MEDS: SYNTHROID 125 mcg TAB PO SCH (09:18)
--- NOTE | 2023-12-23 12:18 | W.DIS.FURT ---
Summary of Discharge Discharge Summary of Date Date of Exam: 12/23/23 Admission Date Date of Admission: 12/21/23 Admission Diagnosis Patient Problems (Updated 12/22/23 @ 11:08 by Margaret Sparks) Near syncope (Acute) R55 Dizziness (Acute) R42 Bradycardia (Acute) R00.1 Hospital Course: Mr Lara is a 73y/o male with a PMH of HTN, HLD, DM and CVA s/p left endarterectomy presented with feeling lightheaded, clammy and sweaty as he was sitting and watching TV. He states the episode lasted a few mins. He denies chest pain or SOB. He reports slight dizziness with ambulation. In the ER, Ct- head was negative, CXR did not show any acute process. Cardiac enzymes and EKG were negative. He was admitted for further work up. He has not had any episodes during this admisssion. ECHO was done which showed EF 555-60%. Carotid US did not show any high grade stenosis. Patient's labs were monitored daily and electrolytes were replaced as needed. His HR remained in the 60s, no events on telemetry. His cardiac enzymes were negative. Patient does see vascular and cardio outpatient. He was ambulating in the room. He was stable for discharge and will f/u with PCP as scheduled. Vital Signs: Vital Signs (72 hours) 12/21/23 14:01 12/21/23 14:29 12/21/23 14:30 Temperature 97.8 F Pulse Rate 59 L 59 L Pulse Rate [Apical] Respiratory Rate 15 28 H Blood Pressure 190/77 160/95 Blood Pressure [Left Arm] O2 Sat by Pulse Oximetry 96 95 Oxygen Delivery Method Room Air 12/21/23 14:30 12/21/23 14:45 12/21/23 15:00 Temperature Pulse Rate 57 L 59 L Pulse Rate [Apical] Respiratory Rate 23 21 Blood Pressure 188/78 Blood Pressure [Left Arm] O2 Sat by Pulse Oximetry 95 96 Oxygen Delivery Method 12/21/23 15:00 12/21/23 15:18 12/21/23 15:30 Temperature Pulse Rate 55 L 60 54 L Pulse Rate [Apical] Respiratory Rate 22 29 H 23 Blood Pressure Blood Pressure [Left Arm] O2 Sat by Pulse Oximetry 95 95 98 Oxygen Delivery Method 12/21/23 15:31 12/21/23 15:31 12/21/23 15:45 Temperature Pulse Rate 54 L 55 L Pulse Rate [Apical] Respiratory Rate 25 H 20 Blood Pressure 166/79 Blood Pressure [Left Arm] O2 Sat by Pulse Oximetry 96 96 Oxygen Delivery Method 12/21/23 16:00 12/21/23 16:01 12/21/23 16:01 Temperature Pulse Rate 67 60 Pulse Rate [Apical] Respiratory Rate 30 H 31 H Blood Pressure 181/77 Blood Pressure [Left Arm] O2 Sat by Pulse Oximetry 95 95 Oxygen Delivery Method 12/21/23 16:15 12/21/23 16:30 12/21/23 16:31 Temperature Pulse Rate 61 55 L Pulse Rate [Apical] Respiratory Rate 24 14 Blood Pressure 178/75 Blood Pressure [Left Arm] O2 Sat by Pulse Oximetry 96 95 Oxygen Delivery Method 12/21/23 16:31 12/21/23 16:45 12/21/23 17:00 Temperature Pulse Rate 62 60 63 Pulse Rate [Apical] Respiratory Rate 22 22 24 Blood Pressure Blood Pressure [Left Arm] O2 Sat by Pulse Oximetry 95 96 95 Oxygen Delivery Method 12/21/23 17:01 12/21/23 17:01 12/21/23 17:15 Temperature Pulse Rate 62 66 Pulse Rate [Apical] Respiratory Rate 21 43 H Blood Pressure 171/132 Blood Pressure [Left Arm] O2 Sat by Pulse Oximetry 96 94 L Oxygen Delivery Method 12/21/23 17:30 12/21/23 17:31 12/21/23 17:31 Temperature Pulse Rate 65 65 Pulse Rate [Apical] Respiratory Rate 32 H 31 H Blood Pressure 179/72 Blood Pressure [Left Arm] O2 Sat by Pulse Oximetry 96 96 Oxygen Delivery Method 12/21/23 17:45 12/21/23 17:55 12/21/23 19:00 Temperature Pulse Rate 60 Pulse Rate [Apical] Respiratory Rate 22 Blood Pressure Blood Pressure [Left Arm] O2 Sat by Pulse Oximetry 96 Oxygen Delivery Method Room Air Room Air 12/21/23 20:00 12/22/23 00:00 12/22/23 04:00 Temperature 97.7 F 98.1 F 98.3 F Pulse Rate Pulse Rate [Apical] 62 64 63 Respiratory Rate 19 22 20 Blood Pressure Blood Pressure [Left Arm] 170/74 172/79 171/79 O2 Sat by Pulse Oximetry 95 94 L 94 L Oxygen Delivery Method Room Air Room Air Room Air 12/22/23 07:00 12/22/23 08:00 12/22/23 09:05 Temperature 98.1 F Pulse Rate Pulse Rate [Apical] 62 Respiratory Rate 18 Blood Pressure Blood Pressure [Left Arm] 166/74 O2 Sat by Pulse Oximetry 94 L Oxygen Delivery Method Room Air Room Air Room Air 12/22/23 11:41 12/22/23 11:42 12/22/23 12:19 Temperature Pulse Rate Pulse Rate [Apical] 66 64 62 Respiratory Rate Blood Pressure Blood Pressure [Left Arm] 144/66 171/74 178/77 O2 Sat by Pulse Oximetry Oxygen Delivery Method 12/22/23 12:00 12/22/23 16:00 12/22/23 19:00 Temperature 97.8 F 97.6 F Pulse Rate Pulse Rate [Apical] 62 63 Respiratory Rate 18 18 Blood Pressure Blood Pressure [Left Arm] 178/77 173/76 O2 Sat by Pulse Oximetry 92 L 95 Oxygen Delivery Method Room Air Room Air Room Air 12/22/23 20:00 12/23/23 00:00 12/23/23 04:00 Temperature 97.7 F 98.2 F 98.3 F Pulse Rate Pulse Rate [Apical] 69 63 62 Respiratory Rate 20 20 20 Blood Pressure Blood Pressure [Left Arm] 173/74 171/70 151/69 O2 Sat by Pulse Oximetry 93 L 93 L 93 L Oxygen Delivery Method CPAP CPAP 12/23/23 08:00 12/23/23 09:04 12/23/23 09:33 Temperature 97.6 F Pulse Rate Pulse Rate [Apical] 65 Respiratory Rate 18 Blood Pressure Blood Pressure [Left Arm] 149/67 O2 Sat by Pulse Oximetry 94 L Oxygen Delivery Method CPAP Room Air Room Air Labs: Laboratory Last Values WBC 8.8 X10^3/uL (3.6-10.0) 12/23/23 04:35 RBC 4.02 X10^6/uL (4.7-6.0) L 12/23/23 04:35 Hgb 12.4 g/dL (13.5-18.0) L 12/23/23 04:35 Hct 36.9 % (42.0-54.0) L 12/23/23 04:35 MCV 91.9 fL (80.0-100.0) 12/23/23 04:35 MCH 30.8 pg (27.0-34.0) 12/23/23 04:35 MCHC 33.5 g/dL (33.0-35.0) 12/23/23 04:35 RDW 13.6 % (11.6-16.5) 12/23/23 04:35 Plt Count 212 X10^3/uL (150.0-450.0) 12/23/23 04:35 MPV 7.8 fL (7.4-11.0) 12/23/23 04:35 Neut % (Auto) 55.3 % (42.0-75.0) 12/23/23 04:35 Lymph % (Auto) 24.7 % (21.0-51.0) 12/23/23 04:35 [place] % (Auto) 13.1 % (0.0-13.0) H 12/23/23 04:35 Eos % (Auto) 6.4 % (0.9-2.9) H 12/23/23 04:35 Baso % (Auto) 0.5 % (0.2-1.0) 12/23/23 04:35 Neut # (Auto) 4.9 x10^3/uL (2.2-4.8) H 12/23/23 04:35 Lymph # (Auto) 2.2 X10^3/uL (1.3-2.9) 12/23/23 04:35 [place] # (Auto) 1.2 x10^3/uL (0.3-0.8) H 12/23/23 04:35 Eos # (Auto) 0.6 x10^3/uL (0.0-0.2) H 12/23/23 04:35 Baso # (Auto) 0.0 X10^3/uL (0.0-0.1) 12/23/23 04:35 Absolute Nucleated RBC 0.0 /100WBC 12/23/23 04:35 PT 15.4 SECONDS (11.8-14.3) 12/22/23 05:02 INR Target Range - 12/22/23 05:02 INR 1.25 (0.8-1.3) 12/22/23 05:02 APTT 35.1 SECONDS (22.9-36.5) 12/22/23 05:02 PTT Comment - 04/30/24 05:02 Sodium 140 mmol/L (136-145) 12/23/23 04:35 Corrected Sodium TNP 12/23/23 04:35 Potassium 3.8 mmol/L (3.5-5.1) 12/23/23 04:35 Chloride 105 mmol/L (98-107) 12/23/23 04:35 Carbon Dioxide 25.5 mmol/L (21-32) 12/23/23 04:35 BUN 20 mg/dL (7-18) H 12/23/23 04:35 Creatinine 1.45 mg/dL (0.70-1.30) H 12/23/23 04:35 Est GFR (MDRD) Af Amer > 60 (>60) 12/23/23 04:35 Est GFR (MDRD) Non-Af 51 (>60) L 12/23/23 04:35 Glucose 104 mg/dL (65-99) H 12/23/23 04:35 POC Glucose (mg/dL) 108 mg/dL (65-99) H 12/23/23 05:37 Calcium 8.4 mg/dL (8.5-10.1) L 12/23/23 04:35 Corrected Calcium 9.9 mg/dL (8.5-10.1) 12/22/23 05:02 Magnesium 2.1 mg/dL (2.0-2.9) 12/22/23 05:02 Total Bilirubin 0.50 mg/dL (0.2-1.0) 12/22/23 05:02 AST 11 Units/L (15-37) L 12/22/23 05:02 ALT 12 Units/L (12-78) 12/22/23 05:02 Alkaline Phosphatase 64 Units/L (46-116) 12/22/23 05:02 Creatine Kinase 109 Units/L (39-308) 12/21/23 13:54 Troponin I High Sens 11.1 ng/L (4.0-60.0) 12/21/23 16:07 Total Protein 6.6 g/dL (6.4-8.2) 12/22/23 05:02 Albumin 2.7 g/dL (3.4-5.0) L 12/22/23 05:02 Globulin 3.9 g/dL (2.5-4.5) 12/22/23 05:02 Albumin/Globulin Ratio 0.7 Ratio (1.1-2.1) L 12/22/23 05:02 S. pyogenes (TEM-PCR) Not detected (NOT DETECT) 12/21/23 14:26 Reason For Visit: NEAR SYNCOPY, DIZZINESS, BRADYCARDIA Discharge Diagnosis All Active Problems (Updated 12/22/23 @ 11:08 by Margaret Sparks) Near syncope (Acute) Dizziness (Acute) Bradycardia (Acute) Lower extremity neuropathy (Acute) Vitamin D deficiency (Chronic) Encounter for annual wellness exam in Medicare patient (Acute) Right ischial pressure sore (Acute) Atherosclerotic cardiovascular disease (Chronic) Other specified disorders of thyroid (Chronic) DM type 2 (diabetes mellitus, type 2) (Chronic) Stroke with left hemiparesis (Chronic) Elevated PSA (Chronic) Essential hypertension (Chronic) Lumbar back pain with radiculopathy affecting right lower extremity (Chronic) AMIRAH on CPAP (Chronic) Combined hyperlipidemia (Chronic) Wellness examination (Acute) Hypertension (Acute) Diabetes (Acute) AMIRAH (obstructive sleep apnea) (Acute) Hyperlipemia (Acute) Acute cerebral infarction (Acute) Acute left-sided weakness (Acute) Plan of Treatment: Continue with present treatment and follow up plan. Pt is to keep follow up appointment as instructed and take medications as ordered. Discharge Medications Discharge Medications: No Known Drug Allergies Allergy (Verified 04/10/23 09:11) CONTINUE taking the following medications montelukast 10 mg tablet 10 mg PO QDAY 12/21/23 [History] rivaroxaban 2.5 mg tablet (Xarelto) 2.5 mg PO BID 12/21/23 [History] Discharge Disposition Discharge Disposition: home Discharge Condition: stable Discharge Plan Discharge Plan Hospital Course: Mr Lara is a 73y/o male with a PMH of HTN, HLD, DM and CVA s/p left endarterectomy presented with feeling lightheaded, clammy and sweaty as he was sitting and watching TV. He states the episode lasted a few mins. He denies chest pain or SOB. He reports slight dizziness with ambulation. In the ER, Ct- head was negative, CXR did not show any acute process. Cardiac enzymes and EKG were negative. He was admitted for further work up. He has not had any episodes during this admisssion. ECHO was done which showed EF 555-60%. Carotid US did not show any high grade stenosis. Patient's labs were monitored daily and electrolytes were replaced as needed. His HR remained in the 60s, no events on telemetry. His cardiac enzymes were negative. Patient does see vascular and cardio outpatient. He was ambulating in the room. He was stable for discharge and will f/u with PCP as scheduled. Patient Disposition: 01 HOME, SELF-CARE Condition: Stable Health Concerns: Post Hospitalization: new medications and changes needed to prevent readmission or further decline. Pt educated and given instructions on all concerns. Care Plan Goals: Problem: Pain/Alteration in Comfort Goal: Improve/ Resolve Pain; Achieve Pain Tolerance Instructions: Take pain medications as prescribed. Contact your primary care provider if your pain is unrelieved or worsens. Follow up with primary care provider as directed. Plan of Treatment: Continue with present treatment and follow up plan. Pt is to keep follow up appointment as instructed and take medications as ordered. Prescription drug monitoring program results: PDMP reviewed and no concerns identified Prescriptions: Continued (DME) OneTouch Verio test strips Strip See Rx Instructions .Route Qty: 100 5RF Rx Instructions: As directed (DME) hydrocolloid dressing [DuoDERM CGF Dressing] 4 X 4 " bandage See Rx Instructions .Route Qty: 10 0RF Rx Instructions: As directed Clean area, dry well and apply to pressore area twice weekly amlodipine 10 mg tablet 10 mg PO QDAY Qty: 30 2RF aspirin 81 mg tablet,delayed release (DR/EC) 81 mg PO QDAY MDD 1 30 Days Qty: 30 0RF carvedilol 25 mg tablet 25 mg PO BID Qty: 60 2RF doxazosin 4 mg tablet 4 mg PO QDAY Qty: 30 2RF ergocalciferol (vitamin D2) 1,250 mcg (50,000 unit) capsule 1,250 mcg PO QWEEK MDD once a WEEK 90 Days Qty: 13 0RF Rx Instructions: Pt will need to repeat labs before refill. gabapentin 100 mg capsule 100 mg PO BID MDD 2 90 Days Qty: 180 0RF levothyroxine 125 mcg tablet 125 mcg PO QAM Qty: 30 1RF losartan 100 mg tablet 100 mg PO QDAY Qty: 30 2RF metformin 750 mg tablet extended release 24 hr 750 mg PO BID Qty: 60 1RF rosuvastatin 40 mg tablet 20 mg PO QPM MDD 1 30 Days Qty: 15 5RF Ozempic 0.25 mg or 0.5 mg (2 mg/3 mL) pen injector 0.5 mg subcut QWEEK Qty: 3 0RF montelukast 10 mg tablet 10 mg PO QDAY Xarelto 2.5 mg tablet 2.5 mg PO BID Orders to Discharge Patient Discharge Orders: Discharge (Routine); Ordered 12/23/23 Ordered By: Margaret Sparks Follow ups/Referrals Follow ups/Referrals: RAJWINDER MINOR [Primary Care Provider] - 12/30/23 11:00 am Instructions Instructions: Vertigo, Near-Syncope, [id number], Allergies, Adult, Dizziness Stand Alone Forms: Excuse From Work or School, Post Hospital Follow Up Care
== END 2023-12-23 10:35 | disposition home or self-care (01) ==
LOC: MED/SURG 13:46 → ER 13:46 → MED/SURG 18:18
PROVIDERS: ADMIT Internal Medicine; ATTEND Family Medicine
DX: E78.5 Hyperlipidemia, unspecified; Z79.01 Long term (current) use of anticoagulants; R42 Dizziness and giddiness; I25.10 Atherosclerotic heart disease of native coronary artery without angina pectoris; Z79.4 Long term (current) use of insulin; R00.1 Bradycardia, unspecified; Z86.73 Personal history of transient ischemic attack (TIA), and cerebral infarction without residual deficits; G81.94 Hemiplegia, unspecified affecting left nondominant side; G57.93 Unspecified mononeuropathy of bilateral lower limbs; I10 Essential (primary) hypertension; E11.65 Type 2 diabetes mellitus with hyperglycemia; R55 Syncope and collapse; E03.8 Other specified hypothyroidism; R94.31 Abnormal electrocardiogram [ECG] [EKG]